=== PATIENT | male | born 1960 | race Caucasian/White ===

== ENCOUNTER 2018-08-08 18:59 | Observation (INO) | payer BC ==
[~2018-08-08] VITALS: Ht 177.8 cm; Wt 86.0 kg
[2018-08-08 01:00] VITALS: BP 146/84
[2018-08-08] MEDS ORDERED: ondansetron/PF 4mg/2ml inj IV ONE (20:20)
[2018-08-08] MEDS ORDERED: ketorolac trometh. 30mg/ml inj. IV ONE (20:20)
[2018-08-08] MEDS ORDERED: normal saline 1000ML IV soln IVB ONE (20:20)
[2018-08-08] MEDS ORDERED: morphine 4 MG/ML inj SYRINge IV PRN ×3 (20:20→22:10)
[2018-08-08 20:30] LABS: BASOPHILS # (AUTO) 0.1 X10'3 (0-0.2); BASOPHILS % (AUTO) 0.5 % (0-1); EOSINOPHILS # (AUTO) 0.1 X10'3 (0-0.9); EOSINOPHILS % (AUTO) 0.6 % (0-6); HEMATOCRIT 47.6 % (42.0-52.0); HEMOGLOBIN 16.8 g/dl (14.0-17.9); LYMPHOCYTES # (AUTO) 1.4 X10'3 (1.1-4.8); LYMPHOCYTES % (AUTO) 9.1 % (21-51); MEAN CORPUSCULAR HEMOGLOBIN 31.8 PG (27.0-31.0); MEAN CORPUSCULAR HGB CONC 35.2 g/dL (33.0-36.5); MEAN CORPUSCULAR VOLUME 90.5 FL (78-98); MEAN PLATELET VOLUME 7.8 FL (7.4-10.4); MONOCYTES % (AUTO) 6.8 % (2-12); NEUTROPHILS # (AUTO) 12.7 X10'3 (1.8-7.7); PLATELET COUNT 332 X10'3 (140-440); RED BLOOD COUNT 5.26 X10'6 (4.70-6.10); RED CELL DISTRIBUTION WIDTH 13.4 % (11.5-14.5); WHITE BLOOD COUNT 15.3 X10'3 (4.5-11.0)
[2018-08-08 20:34] LABS: ALANINE AMINOTRANSFERASE 45 U/L (12-78); ALBUMIN 3.9 G/DL (3.4-5.0); ALKALINE PHOSPHATASE 100 IU/L (46-116); ANION GAP 9 (8-16); ASPARTATE AMINO TRANSFERASE 21 U/L (10-37); BILIRUBIN,TOTAL 0.4 MG/DL (0.1-1.0); BLOOD UREA NITROGEN 16 MG/DL (7-18); BUN/CREATININE RATIO 19.3 (5.4-32.0); CALCIUM 9.8 MG/DL (8.5-10.1); CHLORIDE 103 MMOL/L (99-107); CREATININE 0.83 MG/DL (0.60-1.10); GLUCOSE 106 MG/DL (70-104); LIPASE 142 U/L (73-393); POTASSIUM 3.8 MMOL/L (3.5-5.1); SODIUM 137 MMOL/L (135-145); eGFR > 90 ML/MIN
[2018-08-08 21:00] LABS: CLARITY,URINE CLEAR (Clear); COLOR,URINE YELLOW (Yellow); GLUCOSE, URINE NEGATIVE (Neg); KETONES,URINE NEGATIVE (Neg); LEUKOCYTE ESTERASE ,URINE NEGATIVE (Neg); NITRITES, URINE NEGATIVE (Neg); OCCULT BLOOD,URINE NEGATIVE (Neg); PROTEIN,URINE TRACE mg/dl (Neg); UROBILINOGEN,URINE 0.2 E.U/dL (0.2-1.0)
[2018-08-08 21:03] LABS: UA COLLECTION TYPE CLN CATCH MIDSTREAM
[2018-08-08 21:09] LABS: BACTERIA,URINE NONE SEEN /HPF (Neg); RBC,URINE NONE SEEN /HPF (0-2); WBC,URINE 0-4 /HPF (0-4)
[2018-08-08 21:10] LABS: AMORPHOUS PHOSPHATES 2+; HYALINE CASTS 0-3 /LPF (NEGATIVE); SQUAMOUS EPITHELIAL CELL,UR NONE SEEN /LPF (FEW)
[2018-08-08] MEDS ORDERED: cefoxitin sod inj 2,000 MG in normal saline 100ml IV soln 100 ML IV ONE (22:05)
[2018-08-08] MEDS ORDERED: BUPIVAcaine/PF 2.5 mg/ml (0.25%) 30ml vial ONE (22:06)
[2018-08-08] MEDS ORDERED: ceFAZolin 1000mg inj ONE ×3 (22:06→23:16)
[2018-08-08] MEDS ORDERED: ringers solution, lacted 1,000 ML IV SCH (22:06)
[2018-08-08] MEDS ORDERED: ALLO300T8 PO (22:09)
[2018-08-08] MEDS ORDERED: POTA10TA21 PO (22:09)
[2018-08-08] MEDS ORDERED: PHEN15CA PO (22:09)
[2018-08-08] MEDS ORDERED: HYDR50TA3 PO (22:09)
[2018-08-08] MEDS ORDERED: ESOM40CA54 PO (22:09)
[2018-08-08] MEDS ORDERED: hydrALAZINE 20mg/ml inj. IV PRN (22:10)
[2018-08-08] MEDS ORDERED: ondansetron/PF 4mg/2ml inj IV PRN ×2 (22:10→22:40)
[2018-08-08] MEDS ORDERED: meperidine/PF 25mg/ml syringe IV PRN ×2 (22:10)
[2018-08-08] MEDS ORDERED: ceFOXitin 2 GM ADDVANTGE BAG 100 ML IV ONE (22:10)
[2018-08-08] MEDS ORDERED: ceFOXitin 2 GM ADDVANTGE BAG 50 ML IV ONE (22:10)
[2018-08-08] MEDS ORDERED: labetalol 20mg/4ml (5mg/ml) syringe IV PRN (22:10)
--- NOTE | 2018-08-08 22:12 | NUR ---
ATTEMPTED TO COMPLETE MED REC, UNKNOWN WHEN OR WHAT DOSE PATIENT TAKES OF HIS DUPIXENT.
[2018-08-08] MEDS ORDERED: normal saline 1000ml 1,000 ML IV SCH (22:39)
[2018-08-08] MEDS ORDERED: mag hydrox/Alum hydrox/simeth 30ml oral suspension PO PRN (22:40)
[2018-08-08] MEDS ORDERED: morphine 2 MG/ML inj. syringe IV PRN ×2 (22:40)
[2018-08-08] MEDS ORDERED: HYDROcodone/acetaminophen 10/325mg tab PO PRN (22:40)
[2018-08-08] MEDS ORDERED: magnesium hydroxide 30ml (MOM) UD suspension PO PRN (22:40)
[2018-08-08] MEDS ORDERED: acetaminophen 325mg tablet PO PRN ×2 (22:40)
[2018-08-08] MEDS ORDERED: HYDROcodone/acetaminophen 5mg/325mg tablet PO PRN (22:40)
[2018-08-08] MEDS ORDERED: dexamethasone sod phosphate 4mg/ml inj. ONE (22:45)
[2018-08-08] MEDS ORDERED: neostigmine methylsulfate 1 MG/ML 10ml vial ONE (22:45)
[2018-08-08] MEDS ORDERED: sevoflurane 250ml liquid IH ONE (22:45)
[2018-08-08] MEDS ORDERED: ketamine 50mg/5ml syringe ONE (22:45)
[2018-08-08] MEDS ORDERED: midazolam 2 mg/2 ml injection ONE (22:54)
[2018-08-08] MEDS ORDERED: fentaNYL/PF 50MCG/1 ML 2ML syringe ONE (22:54)
[2018-08-08] MEDS ORDERED: LIDOcaine 1%/PF 5ML 10 MG/ML VIAL ONE (22:55)
[2018-08-08] MEDS ORDERED: rocuronium 10mg/ml inj IV ONE (22:55)
[2018-08-08] MEDS ORDERED: propofol inj 20 ML IV ONE (22:55)
[2018-08-08] MEDS ORDERED: ondansetron/PF 4mg/2ml inj ONE (23:05)
[2018-08-08] MEDS ORDERED: glycopyrrolate 0.2mg/ml inj ONE (23:31)
[2018-08-08] MEDS ORDERED: ketorolac trometh. 30mg/ml inj. ONE (23:44)
[2018-08-09] VITALS (15 sets, daily range): BP systolic 100–175; BP diastolic 55–105
--- NOTE | 2018-08-09 00:05 | NUR ---
Received from OR via BED , accompanied by Anesthesiologist DR SEAMAN and report given by Anesthesiolgist. PATIENT WAKING UP, DENIES PAIN, V/S WNL, NEUROVASCULAR CHECKS INTACT, 20G PIV LUE, SCD ON, BANDAIDS TO LAP SIGHTS OF ABDOMEN CDI.
--- NOTE | 2018-08-09 00:13 | NUR ---
Patient in room . I have received report from JODI Barrett and had the opportunity to ask questions and assume patient care.
[2018-08-09] MEDS ORDERED: CADD PCA waste documentation MC SCH (00:30)
[2018-08-09] MEDS ORDERED: naloxone 0.4 mg/ml inj IV PRN (00:30)
[2018-08-09] MEDS: HYDROmorphone/NS 1 mg/ml CADD 50 ML IV SCH ×7 (00:45→12:57)
--- NOTE | 2018-08-09 00:45 | NUR ---
PATIENT A&OX4, DENIES PAIN, V/S WNL, NEUROVASCULAR CHECKS INTACT, 20G PIV LUE, SCD ON, BANDAIDS TO LAP SIGHTS OF ABDOMEN CDI. PATIENT TAKEN TO 346B WITH ALL BELONGINGS AND HOOKED UP TO MONITORS IN ROOM AND REPORT GIVEN TO RN WHO HAS TAKEN OVER PATIENT CARE.
[2018-08-09 04:46] LABS: HEMOGLOBIN 15.5 g/dl (14.0-17.9); RED CELL DISTRIBUTION WIDTH 13.4 % (11.5-14.5)
[2018-08-09 04:47] LABS: ALBUMIN 3.4 G/DL (3.4-5.0); ANION GAP 7 (8-16); BLOOD UREA NITROGEN 17 MG/DL (7-18); BUN/CREATININE RATIO 18.3 (5.4-32.0); CALCIUM 9.1 MG/DL (8.5-10.1); CHLORIDE 105 MMOL/L (99-107); CREATININE 0.93 MG/DL (0.60-1.10); GLUCOSE 134 MG/DL (70-104); POTASSIUM 3.9 MMOL/L (3.5-5.1); SODIUM 138 MMOL/L (135-145); TOTAL CARBON DIOXIDE 26.1 MMOL/L (24-32); eGFR 84 ML/MIN
[2018-08-09 04:48] LABS: HEMATOCRIT 44.5 % (42.0-52.0); MEAN CORPUSCULAR HEMOGLOBIN 31.9 PG (27.0-31.0); MEAN CORPUSCULAR HGB CONC 34.8 g/dL (33.0-36.5); MEAN CORPUSCULAR VOLUME 91.7 FL (78-98); MEAN PLATELET VOLUME 8.2 FL (7.4-10.4); PLATELET COUNT 311 X10'3 (140-440); RED BLOOD COUNT 4.86 X10'6 (4.70-6.10); WHITE BLOOD COUNT 14.4 X10'3 (4.5-11.0)
--- NOTE | 2018-08-09 06:29 | NUR ---
Problems reprioritized. Patient report given, questions answered & plan of care reviewed with JODI Delgado.
--- NOTE | 2018-08-09 06:31 | NUR ---
Patient in room [facility]. I have received report from LUZ ELENA ZAPATA and had the opportunity to ask questions and assume patient care.
[2018-08-09 06:35] LABS: TOTAL CELLS COUNTED 100
[2018-08-09 06:36] LABS: PLATELET ESTIMATE NORMAL
[2018-08-09] MEDS ORDERED: HYDROchlorothiazide 25mg tablet PO SCH (08:00)
[2018-08-09] MEDS ORDERED: docusate sod 100mg capsule PO SCH (08:00)
[2018-08-09] MEDS ORDERED: POTASSIUM CITRATE 10 MEQ PO SCH (08:00)
[2018-08-09] MEDS ORDERED: sennosides/docusate sodium tablet PO SCH (08:00)
[2018-08-09] MEDS ORDERED: allopurinol 300 MG tablet PO SCH (08:00)
[2018-08-09] MEDS ORDERED: pantoprazole 40mg Tablet.DR PO SCH (08:00)
== END 2018-08-09 13:00 | disposition home or self-care (01) ==
LOC: ER 19:00 → SUR 3N 08-09 00:14
PROVIDERS: ADMIT Hospitalist; ATTEND Internal Medicine
DX: K35.80 Unspecified acute appendicitis (principal); R03.0 Elevated blood-pressure reading, without diagnosis of hypertension; Z87.442 Personal history of urinary calculi
CPT/HCPCS: 36415; 44970; 74176; 80048; 80053; 81001; 83690; 85025; 87070; 93005; 96374; 96375; 99284; G0378; J0690; J0694; J1100; J1170; J1885; J2001; J2250; J2270; J2405; J2704; J2710; J3010; J3490; J7030; J7120; A7000; J2175

== ENCOUNTER → 2019-02-07 | Emergency (ER) | payer BC ==
[~2019-02-07] VITALS: Ht 177.8 cm; Wt 102.7 kg
[~2019-02-07] MED LIST: ALLO300T8 PO; CYCL-1 PO; ESOM40CA54 PO; HYDR-3965 PO; HYDR50TA3 PO; HYDROcodone/acetaminophen 5mg/325mg tablet PO ONE; IBUP-1984 PO; LIDO700A32 TP; LIDOcaine 5% patch TP ONE; LORazepam 1 MG tablet PO ONE; PHEN15CA PO; POTA10TA21 PO; VAL5T PO; cyclobenzaprine 10mg tablet PO ONE; diazepam 5mg tablet PO ONE; ketorolac trometh inj. 60 MG/2 ML VIAL IM ONE
[2019-02-07 19:56] VITALS: BP 133/90
== END | disposition home or self-care (01) ==
LOC: ER 15:24
DX: S22.31XA Fracture of one rib, right side, initial encounter for closed fracture (principal); M62.830 Muscle spasm of back; M54.5 Low back pain; M54.6 Pain in thoracic spine; Z98.890 Other specified postprocedural states; Z79.899 Other long term (current) drug therapy; W11.XXXA Fall on and from ladder, initial encounter; Y93.89 Activity, other specified; Y92.89 Other specified places as the place of occurrence of the external cause; Y99.8 Other external cause status
CPT/HCPCS: 72040; 72070; 72100; 96372; 99284; J1885